=== PATIENT | male | born 1995 | race Caucasian/White ===

== ENCOUNTER 2019-01-15 11:11 | Emergency (ER) | payer SELFPAY ==
--- NOTE | 2019-01-15 12:28 | ED Physician Chart ---
ED Chief Complaint/HPI - Patient Information Date Seen:: 01/15/19 Time Seen:: 12:17 Chief Complaint:: wound check History of Present Illness:: 23 yr old male who had eye bag surgery out in [place] and now with dry bleeding around the lt side of the wound Allergies:: Allergies Allergy/AdvReac Type Severity Reaction Status Date / Time No Known Allergies Allergy Verified 01/15/19 11:17 Vitals:: Vital Signs - 8 hr 01/15/19 11:18 Temp 97.7 F HR 70 RR 18 BP 115/70 O2 Sat % 96 ED Review of Systems - Review of Systems General/Constitutional: No fever Skin: Other (wound lt lower eye lid ) Head: No headache (lt eye lid wound ) ENT: No earache Neck: No neck pain Cardio Vascular: No chest pain Pulmonary: No SOB GI: No vomiting Musculoskeletal: No bone or joint pain Endocrine: No polyuria Psychiatric: No anxiety Hematopoietic: No bruising Allergic/Immuno: No urticaria Neurological: No syncope Family Medical History - Family Member Mother Age: 55 Ethnicity: Non- Living Status: Still Living Other Medical History: Healthy ED Physical Exam - Physical Examination Head: Atraumatic Other Eyes comments:: lt lower eyelid swellin after cosmetic surgery for eye bag surgery Other Skin comments:: cellulitis lt lower eyelid after eye bag surgery december 28 pt has pain reddness at the lower lt eyelid wound Neck: Nontender Respiratory: Nl effort/Exclusion Cardio Vascular: No murmur, gallop, rubs GI: No tenderness/rebounding/guarding : No CVA tenderness Extremities: No tenderness or effusion Neuro/Psych: Alert/oriented ED Septic Shock - . Is Septic Shock (SBP<90, OR Lactate>4 mmol\L) present?: No - <6hrs of presentation: Vital Signs: Vital Signs - 8 hr 01/15/19 11:18 Temp 97.7 F HR 70 RR 18 BP 115/70 O2 Sat % 96 ED Reassessment (Disposition) - Reassessment Reassessment:: cellulitis lt lower wound - Diagnosis Diagnosis:: as above - Aftercare/Follow up Instructions Aftercare/Follow-Up Instructions:: Counseled pt regarding lab results/diagnosis & need follow up Medication Prescribed:: dicloaxicillin doxy and was given rocephin one gram im given - Patient Disposition Discharge/Transfer:: Home Condition at Disposition:: Stable
== END 2019-01-15 12:55 | disposition home or self-care (01) ==
LOC: ER 11:11
DX: H00.035 Abscess of left lower eyelid (principal); H59.322 Postprocedural hemorrhage of left eye and adnexa following other procedure
CPT/HCPCS: 99283; 96372; J0696; J2001; Z7502